=== PATIENT | female | born 1955 | race Caucasian/White ===

== ENCOUNTER 2021-11-14 09:12 | Emergency (ER) | payer MEDICAID, OTHER ==
[~2021-11-14] VITALS: Ht 157.5 cm; Wt 43.1 kg
[2021-11-14] MEDS ORDERED: HYDROcodone-ACET 5/325MG TAB PO ONE (10:30)
[2021-11-14 11:16] VITALS: BP 148/88
== END 2021-11-14 11:18 | disposition home or self-care (01) ==
LOC: ER 09:12
DX: S82.002A Unspecified fracture of left patella, initial encounter for closed fracture (principal); I10 Essential (primary) hypertension; W01.0XXA Fall on same level from slipping, tripping and stumbling without subsequent striking against object, initial encounter; Y93.89 Activity, other specified; Y92.89 Other specified places as the place of occurrence of the external cause; Y99.8 Other external cause status
CPT/HCPCS: 29505; 73562